=== PATIENT | male | born 1980 | race Caucasian/White ===

== ENCOUNTER 2017-10-19 05:31 | Emergency (ER) | payer OTHER ==
[~2017-10-19] VITALS: Ht 182.9 cm; Wt 132.8 kg
[~2017-10-19 05:31] MED LIST: AMLO5 PO; ERYT.5%O EACH EYE
[2017-10-19 05:32] VITALS: BP 155/96; PULSE 81; RESP 18; TEMP 98; O2SAT 96
[2017-10-19] MEDS ORDERED: SODIUM CHLORIDE 0.9% FLUSH 10 ML FLUSH IVF PRN (06:15)
--- NOTE | 2017-10-19 06:27 | PD ---
HPI Chief Complaint: Cold / Flu Symptoms Time Seen by Provider: 06:14 Travel History International Travel<30 days: No Contact w/Intl Traveler<30days: No Traveled to known affect area: No History of Present Illness HPI The patient is a 37-year-old male that is a non-smoker who woke up this morning coughing and congested and wheezing. He does feel generalized myalgias. He went into the shower and breathe the steam and this cleaned up his lungs. He feels much better now but wants something to prevent this from happening again. He has only a minimal cough at this time. He denies any chest pain. He denies any fever. The cough is mostly nonproductive and when he does bring something up it is slightly green. PFSH Past Medical History Anxiety: Yes Diminished Hearing: No Immunizations Current: Yes Tetanus Vaccination: < 5 Years Influenza Vaccination: No Past Surgical History Surgical History: No Previous Surgery Social History Alcohol Use: No (RARELY) Tobacco Use: Yes (QUIT 1 YR AGO) Substance Use: No Allergies-Medications (Allergen,Severity, Reaction): Coded Allergies: erythromycin base (Verified Allergy, Severe, Burning, 10/19/17) REDNESS TO EYES Reported Meds & Prescriptions Reported Meds & Active Scripts Active No Active Prescriptions or Reported Medications Review of Systems Except as stated in HPI: all other systems reviewed are Neg Physical Exam Narrative GENERAL: Patient is alert, oriented 3 in no respiratory distress. His vital signs show blood pressure 155/96 but are otherwise normal. SKIN: Focused skin assessment warm/dry. HEAD: Atraumatic. Normocephalic. EYES: Pupils equal and round. No scleral icterus. No injection or drainage. ENT: No nasal bleeding or discharge. Mucous membranes pink and moist. NECK: Trachea midline. No JVD. CARDIOVASCULAR: Regular rate and rhythm. No murmur appreciated. RESPIRATORY: No accessory muscle use. Clear to auscultation. Breath sounds equal bilaterally. GASTROINTESTINAL: Abdomen soft, non-tender, nondistended. Hepatic and splenic margins not palpable. MUSCULOSKELETAL: No obvious deformities. No clubbing. No cyanosis. No edema. NEUROLOGICAL: Awake and alert. No obvious cranial nerve deficits. Motor grossly within normal limits. Normal speech. PSYCHIATRIC: Appropriate mood and affect; insight and judgment normal. Data Data Last Documented VS Vital Signs Date Time Temp Pulse Resp B/P (MAP) Pulse Ox O2 Delivery O2 Flow Rate FiO2 10/19/17 05:43 96 Room Air 10/19/17 05:32 98.0 81 18 155/96 (115) Orders Orders Influenzae A/B Antigen (10/19/17 06:15) Sodium Chloride 0.9% Flush (Ns Flush) (10/19/17 06:15) Chest, Pa & Lat (10/19/17 06:21) Albuterol-Ipratropium Neb (Duoneb Neb) (10/19/17 06:30) [facility] Medical Decision Making Medical Screen Exam Complete: Yes Emergency Medical Condition: Yes Medical Record Reviewed: Yes Interpretation(s) The influenza A/B antigen is negative for flu a and flu B antigen. The chest x- ray shows no acute cardiopulmonary disease. Differential Diagnosis Pneumonia, bronchitis with bronchospasm, asthma Narrative Course The patient got good relief with the DuoNeb treatments. Impression is bronchitis with bronchospasm. He will be given an albuterol HFA, he does not have a nebulizer machine at home. The patient also get a tapered course of prednisone. Diagnosis Primary Impression: Bronchitis with bronchospasm Med/Other Pt SpecificInfo: Prescription(s) given Scripts Prednisone (Prednisone) 50 Mg Tab 50 MG PO BID for X 4days than daily X 4 days, #12 TAB 0 Refills Prov: Filiberto Casey MD 10/19/17 Albuterol 8.5 GM Inh (Proair Hfa 8.5 GM Inh) 90 Mcg/Act Aer 2 PUFF INH Q4-6H Y for SHORTNESS OF BREATH, #1 INHALER 0 Refills 108 mcg/actuation Prov: Filiberto Casey MD 10/19/17 Disposition: 01 DISCHARGE HOME Condition: Stable Filiberto Casey MD Oct 19, 2017 06:27
[2017-10-19] MEDS: RESP: ALBUTEROL 2.5 MG/IPRATROPIUM 0.5 MG NEB (SCH) INH (06:46)
--- NOTE | 2017-10-19 06:51 | RADRPT ---
EXAM DATE: 10/19/2017 6:34 AM EDT AGE/SEX: 37 years / Male INDICATIONS: Cough, congestion, and shortness of breath. CLINICAL DATA: This is the patient's initial encounter. Patient reports that signs and symptoms have been present for 1 day and indicates a pain score of 0/10. MEDICAL/SURGICAL HISTORY: None. None. COMPARISON: [facility], CHEST PA & LAT, 02/11/2015. . FINDINGS: PA and lateral views of the chest demonstrate the lungs to be symmetrically aerated without evidence of mass, infiltrate or effusion. The cardiomediastinal contours are unremarkable. Osseous structures are intact. CONCLUSION: Negative examination. Electronically signed by: Ravin Mcfarland MD 10/19/2017 6:50 AM EDT
[2017-10-19] MEDS ORDERED: ALBUAER3 INH (07:08)
[2017-10-19] MEDS ORDERED: PRED50 PO (07:09)
== END 2017-10-19 07:22 | disposition home or self-care (01) ==
LOC: PHED 05:31
DX: J40 Bronchitis, not specified as acute or chronic (principal); Z87.891 Personal history of nicotine dependence
CPT/HCPCS: 71046; 87804; 94640; 94664; 99284